=== PATIENT | female | born 1970 | race Two or more races ===

== ENCOUNTER 2020-05-01 13:05 | Inpatient (IN) | payer OTHER ==
[~2020-05-01] VITALS: Ht 162.6 cm; Wt 83.9 kg
== END 2020-05-23 13:52 | disposition home or self-care (01) | DRG 331 ==
LOC: O/R 05-20 06:55 → SURG 05-20 06:55 → SURH 05-20 11:00 → SURG 05-20 12:57 → SURH 05-20 13:15 → SURG 05-23 13:52
PROVIDERS: ADMIT Colon & Rectal Surgery; ATTEND Colon & Rectal Surgery
PROC: 0DBN4ZZ Excision of Sigmoid Colon, Percutaneous Endoscopic Approach (ICD-10-PCS; 2020-05-20)
PROC: 0DJD8ZZ Inspection of Lower Intestinal Tract, Via Natural or Artificial Opening Endoscopic (ICD-10-PCS; 2020-05-20)
PROC: 0DTP4ZZ Resection of Rectum, Percutaneous Endoscopic Approach (ICD-10-PCS; principal; 2020-05-20 13:15)
DX: K57.30 Diverticulosis of large intestine without perforation or abscess without bleeding (principal); E66.9 Obesity, unspecified